=== PATIENT | male | born 1990 | race Caucasian/White ===

== ENCOUNTER 2023-07-24 08:43 | Emergency (ER) | payer BC ==
[~2023-07-24] VITALS: Ht 177.8 cm; Wt 77.9 kg
[2023-07-24] MEDS ORDERED: HYDROCODON-ACE1 EA10 PO (10:01)
[2023-07-24] MEDS ORDERED: CIPROFLOXACIN2.5 M1 OPTH (10:01)
[2023-07-24 10:07] VITALS: BP 12/78
== END 2023-07-24 10:08 | disposition home or self-care (01) ==
LOC: ED 08:43
DX: T15.01XA Foreign body in cornea, right eye, initial encounter (principal)
CPT/HCPCS: 65222; 99283-25